=== PATIENT | female | born 1985 | race American Indian/Alaskan Native ===

== ENCOUNTER 2019-10-09 06:45 | Inpatient (IN) | payer BC ==
[2019-10-09] MEDS ORDERED: MINERAL OIL 30 ML ORAL LIQD PO PRN (07:19)
[2019-10-09] MEDS ORDERED: ePHEDrine SULFATE 50 MG/1 ML INJ IV PRN (07:19)
[2019-10-09] MEDS ORDERED: TERBUTALINE 1 MG/1 ML INJ SUB-Q PRN (07:19)
[2019-10-09] MEDS ORDERED: TERBUTALINE 1 MG/1 ML INJ IVP PRN (07:19)
[2019-10-09] MEDS ORDERED: fentaNYL 100 MCG/2 ML INJ IV ONE (07:47)
[2019-10-09] MEDS ORDERED: OXYTOCIN DRIP 30 UNITS/500 ML BAG IV SCH (08:00)
[2019-10-09] MEDS ORDERED: LACTATED RINGERS 1,000 ML IV SCH ×2 (08:00→10:00)
[2019-10-09] MEDS ORDERED: LIDOCAINE (2%) 20 MG/1 ML VIAL 20 ML MDV INFILTRATI ONE (08:00)
[2019-10-09] MEDS ORDERED: AMPICILLIN/NS 2 GM/100 ML 2 GM/100 ML BAG IV ONE (08:00)
[2019-10-09] MEDS ORDERED: OXYTOCIN 20 UNIT/1000ML DRIP 20 UNITS/1,000 ML BAG IV SCH (08:00)
--- NOTE | 2019-10-09 08:00 | History and Physical Report ---
History of Present Illness Date of examination: 10/09/19 (pt presented in active labor) History of present illness: EDC Confirmation: 10/07/2019 Gestational Age: 7 4/7 weeks Past History : 2 Term Births: 1 Premature Births: 0 Living Children: 1 Para: 1 Mult. Births: 0 Prev : 0 Prev. attempt? 0 Aborta: 0 Elect. Ab: 0 Spont. Ab: 0 Ectopics: 0 # 1 Weeks Gestation: term Delivery type: Comments: preeclampsia0 Past Medical History Abnormal PAP: negative XIN Exposure: negative Infertility: negative Uterine Anomaly: negative Uterine Surgery (not C/S): negative Other Gynecologic Problems: negative Social Hx: denies etoh, drugs, tobacco use Infection History Hx of STD: none HIV Risk Eval: no Hepatitis B Risk Eval: low risk Personal hx. of genital herpes: no Partner hx. of genital herpes: no Rash, Viral, or Febrile illness since last LMP? no Varicella/Chicken Pox Status: Previous Disease TB Risk: no Genetic History ADVANCED MATERNAL AGE Congenital Heart Defect: Mom: no Dad: no Kayla Disease: Mom: no Dad: no Thalassemia Mom: no Dad: no Neural Tube Defect Mom: no Dad: no Down's Syndrome Mom: no Dad: no Darrius-Sachs Mom: no Dad: no Sickle Cell Disease/Trait Mom: no Dad: no Hemophilia Mom: no Dad: no Muscular Dystrophy Mom: no Dad: no Cystic Fibrosis Mom: no Dad: no [place] Chorea Mom: no Dad: no Mental Retardation Mom: no Dad: no Fragile X Mom: no Dad: no Other Genetic/Chromosomal Disorder Mom: no Dad: no Child w/other defect Mom: no Dad: no Enviromental Exposures Enviromental Exposures Reviewed Xray Exposure: no Medication, drug, or alcohol use since LMP: no Chemical/Other Exposure: no Exposure to Cat Liter: no Hx of Parvovirus (Fifth Disease): no Occupational Exposure to Children: none Active Medications (reviewed today): PNV () Current Allergies (reviewed today): * COMPAZINE (Critical) * DIFLUCAN (Critical) Past History - Obstetrical History Expected Date of Delivery: 10/07/19 Actual Gestation: 40 Week(s) 2 Day(s) : 2 Para: 1 Hx # Term Pregnancies: 1 (PP preE) Number of Pregnancies: 0 Spontaneous Abortions: 0 Induced : 0 Number of Living Children: 1 Medications and Allergies Allergies Allergy/AdvReac Type Severity Reaction Status Date / Time fluconazole [From Diflucan] Allergy Rash Verified 10/09/19 06:58 prochlorperazine Allergy Unknown Verified 10/09/19 08:29 [From Compazine] Home Medications Medication Instructions Recorded Confirmed Last Taken Type Aspirin [Aspirin BABY CHEW TAB] 1 tab PO DAILY 10/09/19 10/09/19 10/08/19 History Vit-Fe Fumar-FA [ 1 tab PO DAILY 10/09/19 10/09/19 10/08/19 History Vitamin] Active Meds: Active Medications Ephedrine Sulfate (Ephedrine Sulfate) 10 mg IV Q2M PRN PRN Reason: Hypotension Oxytocin/Sodium Chloride (Pitocin/Ns 20 Unit/1000ml Drip) 20 units in 1,000 mls @ 125 mls/hr IV DIRECT LACHO Lactated Ringer's (Lactated Ringers) 1,000 mls @ 125 mls/hr IV DIRECT LACHO Ampicillin Sodium (Ampicillin/Ns 2 Gm/100 Ml) 2 gm in 100 mls @ 100 mls/hr IV ONCE ONE; Protocol Stop: 10/09/19 08:59 Lidocaine (Xylocaine 2%) 20 ml INFILTRATI ONCE ONE Stop: 10/09/19 08:01 Mineral Oil (Mineral Oil) 30 ml PO QHS PRN PRN Reason: Constipation Terbutaline Sulfate (Brethine) 0.25 mg SUB-Q ONCE PRN PRN Reason: Hyperstimulation/Hypertonicity - Vital Signs Vital signs: Vital Signs Pulse Ox 83 L 10/09/19 06:48 Temp Pulse Resp BP Pulse Ox 99.2 F 101 H 18 151/86 97 10/09/19 06:49 10/09/19 07:21 10/09/19 06:49 10/09/19 06:49 10/09/19 07:21 - Physical Exam Breasts: Positive: deferred Cardiovascular: Regular rate, Normal S1, Normal S2 Abdomen: Positive: normal appearance, soft, normal bowel sounds. Negative: distention, tenderness Vulva: both: normal Vagina: Positive: normal moisture. Negative: discharge Cervix: Negative: lesion, discharge Uterus: Positive: normal size, normal contour Adnexa: both: normal Anus/Rectum: Positive: normal perianal skin, heme negative. Negative: rectal mass, hemorrhoids Extremities: Positive: normal Deep Tendon Reflex Grade: Normal +2 - Obstetrical FHR: category 1 Uterine Contraction Monitor Mode: External Cervical Dilatation: 5 (per Triage nurse) Cervical Effacement Percentage: 70 (BBOW) station: -2 Uterine Contraction Pattern: Regular Uterine Tone Measurement Phase: Resting Uterine Contraction Intensity: Moderate Results Result Diagrams: 10/09/19 07:58 10/09/19 07:58 All other labs normal. GBS POSITIVE HBsAg Screen Negative Negative *1 RPR Non Reactive Non Reactive *2 Rubella Antibodies, IgG 16.60 index Immune >0.99 *3 Non-immune <0.90 Equivocal 0.90 - 0.99 Immune >0.99 ABO Grouping O *4 Rh Factor Positive *5 Please note: Prior records for this patient's ABO / Rh type are not available for additional verification. Antibody Screen Negative Negative *6 WBC 8.6 x10E3/uL 3.4-10.8 *7 RBC 4.39 x10E6/uL 3.77-5.28 *8 Hemoglobin 12.6 g/dL 11.1-15.9 *9 Hematocrit 39.3 % 34.0-46.6 *10 MCV 90 fL 79-97 *11 MCH 28.7 pg 26.6-33.0 *12 MCHC 32.1 g/dL 31.5-35.7 *13 RDW 13.2 % 12.3-15.4 *14 Platelets 222 x10E3/uL 150-450 *15 Neutrophils 65 % Not Estab. *16 Lymphs 28 % Not Estab. *17 Monocytes 6 % Not Estab. *18 Eos 1 % Not Estab. *19 Basos 0 % Not Estab. *20 ! Immature Cells <No Reported Value> *21 Neutrophils (Absolute) 5.5 x10E3/uL 1.4-7.0 *22 Lymphs (Absolute) 2.4 x10E3/uL 0.7-3.1 *23 Monocytes(Absolute) 0.6 x10E3/uL 0.1-0.9 *24 Eos (Absolute) 0.1 x10E3/uL 0.0-0.4 *25 Baso (Absolute) 0.0 x10E3/uL 0.0-0.2 *26 ! Immature Granulocytes 0 % Not Estab. *27 ! Immature Grans (Abs) 0.0 x10E3/uL 0.0-0.1 *28 ! NRBC <No Reported Value> *29 Hematology Comments: <No Reported Value> *30 Tests: (2) HB Solu + Rflx Frac ([id number]) Hemoglobin (Hgb) Solubility Negative Negative *31 Tests: (3) Gest. Diabetes 1-Hr Screen ([id number]) ! Gestational Diabetes Screen 102 mg/dL 65-139 *32 According to ADA, a glucose threshold of >139 mg/dL after 50-gram load identifies approximately 80% of women with gestational diabetes mellitus, while the sensitivity is further increased to approximately 90% by a threshold of >129 mg/dL. Tests: (4) HCV Antibody reflex to CORBY ([id number]) ! HCV Ab <0.1 s/co ratio 0.0-0.9 *33 Tests: (5) Interpretation: ([id number]) ! Interpretation: SPRCS *34 Negative Not infected with HCV, unless recent infection is suspected or other evidence exists to indicate HCV infection. Tests: (6) Urine Culture, Routine ([id number]) Urine Culture, Routine Final report *35 Tests: (7) Result ([id number]) ! Result 1 "Result Below..." *36 RESULT: Lactobacillus species Greater than 100,000 colony forming units per mL Susceptibility not normally performed on this organism. Assessment and Plan 33yo @ 40 weeks in active labor GBS+ Hx of PP PreEclampsia Orders in EMR. Anticipate delivery - Patient Problems (1) Active labor Onset Date: ~10/09/19 Current Visit: No Status: Acute Plan to address problem: anticipate delivery (2) Group B Streptococcus carrier state affecting Onset Date: ~10/09/19 Current Visit: Yes Status: Acute Plan to address problem: ampicillin per protocol (3) 40 weeks gestation of Onset Date: ~10/09/19 Current Visit: Yes Status: Acute (4) BMI 45.0-49.9, adult Onset Date: ~10/09/19 Current Visit: Yes Status: Acute
[2019-10-09 08:44] LABS: Hematocrit 39.4 % (30.3-42.9); Hemoglobin 12.9 gm/dl (10.1-14.3); Mean Corpuscular HGB Conc 33 % (30-34); Mean Corpuscular Volume 91 fl (79-97); Platelet Count 180 K/mm3 (140-440); Red Blood Count 4.33 M/mm3 (3.65-5.03); Red Cell Distribution Width 14.8 % (13.2-15.2)
[2019-10-09 08:45] LABS: Alanine Aminotransferase 19 units/L (7-56); Uric Acid 5.9 mg/dL (3.5-7.6)
[2019-10-09] MEDS ORDERED: miSOPROStol 200 MCG TAB ONE (08:50)
--- NOTE | 2019-10-09 09:24 | Procedure Note ---
OB Delivery Note - Delivery Date of Delivery: 10/09/19 Carton Stenciler: LAXMI ABREU Estimated blood loss: 300cc - Vaginal Delivery presentation: vertex Delivery position: OA Intrapartum events: precipitous labor- <3hr, other(please specify) (hx of PP PreE) Delivery induction: none Delivery monitor: external FHT, external uterine Route of delivery: Delivery placenta: spontaneous Delivery cord: 3 umbilical vessels Episiotomy: none Delivery laceration: 2nd degree Delivery repair: vicryl Anesthesia: local Delivery comments: Pt c/o need to defecate. SVE 10,100,+1 BBOW live born male over intact perineum Caul removed from baby's head. Placed skin to skin on mom's abdomen. Cord blood obtained Placenta delivered complete and intact, 3 vessel cord. Pit IVFs. Continued trickle of blood despite massage and uterine sweep. Cytotec 800mcg TN. Laceration vaginal repaired over lidocaine with 2-0 vicryl. Called to room by RN several mod clots removed from uterus. Pt w/o s/sx of anemia OOB to void EBL corrected to 600ml Elevated BPs noted Will do MGSO4 2gm/hr. PreE protocol - Infant A at 1 minute: 8 at 5 minutes: 9 Infant Gender: Female (wgt 7-4)
[2019-10-09] MEDS ORDERED: diphenhydrAMINE 25 MG CAP PO PRN (09:26)
[2019-10-09] MEDS ORDERED: MAGNESIUM HYDROXIDE (MOM) ORAL LIQD UDC PO PRN (09:26)
[2019-10-09] MEDS ORDERED: WITCH HAZEL/ GLYCERIN PAD TP PRN (09:26)
[2019-10-09] MEDS ORDERED: ONDANSETRON 4 MG/2 ML INJ IV PRN (09:26)
[2019-10-09] MEDS ORDERED: LANOLIN/ZINC/DIMETHICONE (LANSINOH) 7 GM TP PRN (09:26)
[2019-10-09] MEDS ORDERED: HYDROcodone/ACETAMINOPHEN 5-325 MG TAB PO PRN (09:26)
[2019-10-09] MEDS ORDERED: PROMETHAZINE 25 MG TAB PO PRN (09:26)
[2019-10-09] MEDS ORDERED: ACETAMINOPHEN 325 MG TAB PO PRN (09:26)
[2019-10-09] MEDS ORDERED: miSOPROStol 200 MCG TAB PR ONE (10:00)
[2019-10-09] MEDS: PRENATAL VIT27-FE FUMARATE-FOLIC ACID VIT TAB PO SCH (10:36)
[2019-10-09] MEDS: IBUPROFEN 800 MG TAB PO SCH ×2 (10:36→17:11)
[2019-10-09] MEDS: MAGNESIUM SULFATE 40GM/1000ML 40 GM/1,000 ML BAG IV SCH (11:11)
[2019-10-09 12:45] LABS: Bilirubin,Urine NEG (Negative); Blood,Urine SM (Negative); Color,Urine Straw (Yellow); Mucus,Urine FEW /HPF; Protein,Urine <15 mg/dL mg/dL (Negative); Urobilinogen,Urine < 2.0 mg/dL (<2.0); WBC,Urine < 1.0 /HPF (0.0-6.0)
[2019-10-09 20:48] LABS: Hemoglobin 11.5 gm/dl (10.1-14.3)
[2019-10-10] MEDS: IBUPROFEN 800 MG TAB PO SCH ×3 (01:26→21:40)
[2019-10-10] MEDS ORDERED: DIPHtheria,PERTUSSIS(ACELL),TETANUS VACCINE/PF 0.5 ML VIAL IM ONE ×2 (06:00→21:30)
[2019-10-10] MEDS ORDERED: MEASLES, MUMPS & RUBELLA 12,500 UNIT/0.5 ML VACCINE SUB-Q ONE (06:00)
[2019-10-10] MEDS: MAGNESIUM SULFATE 40GM/1000ML 40 GM/1,000 ML BAG IV SCH (07:05)
--- NOTE | 2019-10-10 09:17 | Progress Note ---
Assessment and Plan Dr Reyes notified of pt status and POC - Patient Problems (1) Normal spontaneous vaginal delivery Onset Date: ~10/09/19 Current Visit: Yes Status: Acute Plan to address problem: FF below umb Lochia small Perineum slight swelling intact Will continue with routine PP pathway Advance as tolerated. Transfer to M/B @ 1100 after MGSO4 is stopped (2) Pre-eclampsia, Onset Date: ~10/09/19 Current Visit: Yes Status: Acute Plan to address problem: Overall BP 130/70 Has an occasional reading of 150/70 and there are outliers of 130/90 Will start Labetalol 200mg po BID, pt reports she was on BP medication after her last delivery. I&O 3750 No c/o BELL, blurred, chest pain. MGSO4 off @ 1000. OOB for AM care. Transfer order placed Subjective - Subjective Date of service: 10/10/19 (Pt in good spirits; no c/o voiced) Principal diagnosis: Day # 1 s/p ; PP PreE Interval history: EDC Confirmation: 10/07/2019 Gestational Age: 7 4/7 weeks Past History : 2 Term Births: 1 Premature Births: 0 Living Children: 1 Para: 1 Mult. Births: 0 Prev : 0 Prev. attempt? 0 Aborta: 0 Elect. Ab: 0 Spont. Ab: 0 Ectopics: 0 # 1 Weeks Gestation: term Delivery type: Comments: preeclampsia0 Past Medical History Abnormal PAP: negative XIN Exposure: negative Infertility: negative Uterine Anomaly: negative Uterine Surgery (not C/S): negative Other Gynecologic Problems: negative Social Hx: denies etoh, drugs, tobacco use Infection History Hx of STD: none HIV Risk Eval: no Hepatitis B Risk Eval: low risk Personal hx. of genital herpes: no Partner hx. of genital herpes: no Rash, Viral, or Febrile illness since last LMP? no Varicella/Chicken Pox Status: Previous Disease TB Risk: no Genetic History ADVANCED MATERNAL AGE Congenital Heart Defect: Mom: no Dad: no Kayla Disease: Mom: no Dad: no Thalassemia Mom: no Dad: no Neural Tube Defect Mom: no Dad: no Down's Syndrome Mom: no Dad: no Darrius-Sachs Mom: no Dad: no Sickle Cell Disease/Trait Mom: no Dad: no Hemophilia Mom: no Dad: no Muscular Dystrophy Mom: no Dad: no Cystic Fibrosis Mom: no Dad: no [place] Chorea Mom: no Dad: no Mental Retardation Mom: no Dad: no Fragile X Mom: no Dad: no Other Genetic/Chromosomal Disorder Mom: no Dad: no Child w/other defect Mom: no Dad: no Enviromental Exposures Enviromental Exposures Reviewed Xray Exposure: no Medication, drug, or alcohol use since LMP: no Chemical/Other Exposure: no Exposure to Cat Liter: no Hx of Parvovirus (Fifth Disease): no Occupational Exposure to Children: none Active Medications (reviewed today): PNV () Current Allergies (reviewed today): * COMPAZINE (Critical) * DIFLUCAN (Critical) Patient reports: voiding normally, pain well controlled : doing well Objective - Vital Signs Latest vital signs: Vital Signs Temp Pulse Resp BP BP Pulse Ox 10/10/19 09:11 91 H 99 10/10/19 09:06 99 H 99 10/10/19 09:05 99 H 94 10/10/19 09:01 89 98 10/10/19 08:56 93 H 96 10/10/19 08:51 83 97 10/10/19 08:46 87 97 10/10/19 08:41 85 97 10/10/19 08:36 83 97 10/10/19 08:31 86 98 10/10/19 08:26 92 H 97 10/10/19 08:21 97 H 98 10/10/19 08:16 93 H 98 10/10/19 08:11 93 H 98 10/10/19 08:07 97.1 F L 10/10/19 08:06 94 H 98 10/10/19 08:01 91 H 98 10/10/19 07:56 94 H 98 10/10/19 07:51 87 99 10/10/19 07:48 91 H 134/75 10/10/19 07:46 91 H 98 10/10/19 07:41 94 H 98 10/10/19 07:36 93 H 98 10/10/19 07:33 102 H 94 10/10/19 07:31 95 H 98 10/10/19 07:26 92 H 98 10/10/19 07:21 90 98 10/10/19 07:16 91 H 98 10/10/19 07:11 85 97 05/24/20 07:06 89 98 05/24/20 07:01 92 H 96 05/24/20 06:56 93 H 99 05/24/20 06:51 88 99 05/24/20 06:48 96 H 124/74 05/24/20 06:46 93 H 98 05/24/20 06:41 96 H 99 052420 06:36 92 H 100 05/24/20 06:31 97 H 100 052420 06:26 98 H 98 052420 06:21 108 H 99 052420 06:16 96 H 99 052420 06:11 97 H 99 052420 06:06 96 H 99 052420 06:01 97 H 100 052420 05:56 99 H 98 052420 05:51 99 H 99 052420 05:48 51 L 141/75 052420 05:46 97 05/24/20 05:25 96 H 98 05/24/20 05:20 95 H 98 052420 05:15 94 H 97 052420 05:10 92 H 98 0524/20 05:05 95 H 98 05/24/20 05:00 97 H 97 0524/20 04:55 94 H 98 05/24/20 04:50 103 H 99 05/24/20 04:48 96 H 131/73 05/24/20 04:45 95 H 98 05/24/20 04:40 94 H 98 05/24/20 04:35 98 H 99 05/24/20 04:30 94 H 98 05/24/20 04:25 97 H 99 05/24/20 04:20 97 H 99 05/24/20 04:15 97 H 100 05/24/20 04:10 96 H 100 05/24/20 04:05 95 H 99 05/24/20 04:00 99 H 99 05/24/20 03:55 98 H 100 05/24/20 03:50 98 H 100 05/24/20 03:48 100 H 139/92 05/24/20 03:45 98 H 100 05/24/20 03:40 99 H 97 05/24/20 03:35 92 H 99 05/24/20 03:30 87 97 05/24/20 03:26 85 94 05/24/20 03:25 91 H 98 05/24/20 03:20 90 99 05/24/20 03:15 88 99 05/24/20 03:10 87 98 05/24/20 03:05 94 H 98 05/24/20 03:00 95 H 98 05/24/20 02:55 91 H 98 05/24/20 02:50 91 H 97 05/24/20 02:48 96 H 132/79 05/24/20 02:45 90 97 05/24/20 02:40 91 H 98 05/24/20 02:35 93 H 98 05/24/20 02:30 90 98 05/24/20 02:25 93 H 99 05/24/20 02:20 95 H 95 05/24/20 02:15 96 H 96 05/24/20 02:12 89 94 05/24/20 02:10 93 H 97 05/24/20 02:05 93 H 97 05/24/20 02:00 92 H 96 05/24/20 01:55 91 H 97 05/24/20 01:50 93 H 97 05/24/20 01:48 96 H 138/81 05/24/20 01:45 93 H 98 05/24/20 01:40 95 H 98 05/24/20 01:35 95 H 97 05/24/20 01:30 95 H 98 05/24/20 01:25 92 H 97 05/24/20 01:20 101 H 99 05/24/20 01:15 95 H 97 05/24/20 01:10 93 H 98 05/24/20 01:05 94 H 98 05/24/20 01:00 99 H 98 05/24/20 00:55 91 H 98 05/24/20 00:50 91 H 98 05/24/20 00:48 89 136/73 05/24/20 00:45 94 H 98 05/24/20 00:40 101 H 98 05/24/20 00:35 101 H 98 05/24/20 00:30 101 H 98 05/24/20 00:25 99 H 98 05/24/20 00:20 99 H 98 05/24/20 00:15 106 H 99 05/24/20 00:10 98 H 98 05/24/20 00:05 104 H 97 05/24/20 00:00 103 H 98 05/23/20 23:55 102 H 98 05/23/20 23:50 101 H 99 05/23/20 23:48 96 H 135/72 05/23/20 23:45 102 H 98 05/23/20 23:40 100 H 98 05/23/20 23:35 104 H 98 05/23/20 23:30 106 H 99 05/23/20 23:25 98 H 99 05/23/20 23:20 101 H 99 05/23/20 23:15 97 H 98 05/23/20 23:10 101 H 99 05/23/20 23:09 95 H 126/71 05/23/20 23:05 93 H 97 05/23/20 23:00 93 H 98 05/23/20 22:55 95 H 97 05/23/20 22:50 100 H 97 05/23/20 22:45 95 H 97 05/23/20 22:40 93 H 98 05/23/20 22:35 98 H 99 05/23/20 22:30 97 H 100 05/23/20 22:25 94 H 97 05/23/20 22:20 94 H 96 05/23/20 22:15 95 H 97 05/23/20 22:10 105 H 99 05/23/20 22:05 97 H 98 05/23/20 22:00 99 H 99 05/23/20 21:55 100 H 99 05/23/20 21:50 99 H 98 05/23/20 21:29 102 H 99 05/23/20 21:24 109 H 97 05/23/20 21:19 107 H 100 05/23/20 21:14 102 H 98 05/23/20 21:09 105 H 98 05/23/20 21:04 99 H 97 05/23/20 20:59 98 H 97 05/23/20 20:54 99 H 97 05/23/20 20:49 105 H 158/75 99 05/23/20 20:48 101 H 93 05/23/20 20:44 104 H 99 05/23/20 20:39 101 H 98 05/23/20 20:34 99 H 99 05/23/20 20:29 101 H 98 05/23/20 20:24 99 H 99 05/23/20 20:21 97.4 F L 103 H 20 138/72 100 05/23/20 20:19 103 H 98 05/23/20 20:14 98 H 97 05/23/20 20:09 98 H 99 05/23/20 20:04 106 H 98 05/23/20 19:59 103 H 98 05/23/20 19:54 102 H 98 05/23/20 19:49 100 H 99 05/23/20 19:48 100 H 138/72 05/23/20 19:44 102 H 99 05/23/20 19:39 102 H 99 05/23/20 19:34 101 H 98 05/23/20 19:29 100 H 98 05/23/20 19:24 100 H 98 05/23/20 19:19 100 H 99 05/23/20 19:14 97 H 98 05/23/20 19:09 104 H 98 05/23/20 19:04 98 H 98 05/23/20 18:59 103 H 98 05/23/20 18:54 108 H 98 05/23/20 18:49 105 H 98 05/23/20 18:48 101 H 136/70 05/23/20 18:44 104 H 97 05/23/20 18:39 106 H 98 05/23/20 18:34 109 H 98 05/23/20 18:29 101 H 99 05/23/20 18:24 105 H 99 05/23/20 18:19 102 H 98 05/23/20 18:14 107 H 98 05/23/20 18:09 102 H 98 05/23/20 18:04 105 H 98 05/23/20 17:59 103 H 98 05/23/20 17:54 104 H 99 05/23/20 17:49 109 H 97 05/23/20 17:48 106 H 150/81 94 05/23/20 17:44 106 H 97 05/23/20 17:39 107 H 98 05/23/20 17:34 106 H 98 05/23/20 17:29 109 H 97 05/23/20 17:24 106 H 98 05/23/20 17:19 108 H 98 05/23/20 17:14 108 H 98 05/23/20 17:09 110 H 99 05/23/20 17:04 112 H 100 05/23/20 16:59 104 H 100 05/23/20 16:54 103 H 99 05/23/20 16:49 105 H 98 05/23/20 16:48 104 H 132/67 05/23/20 16:44 102 H 99 05/23/20 16:39 105 H 97 05/23/20 16:34 101 H 98 05/23/20 16:29 102 H 98 05/23/20 16:24 108 H 98 05/23/20 16:19 102 H 98 05/23/20 16:14 100 H 98 05/23/20 16:09 100 H 98 05/23/20 16:04 99 H 98 05/23/20 15:59 102 H 97 05/23/20 15:54 105 H 98 05/23/20 15:49 105 H 97 05/23/20 15:48 101 H 135/70 05/23/20 15:44 104 H 98 05/23/20 15:39 105 H 97 05/23/20 15:34 113 H 98 05/23/20 15:29 110 H 99 05/23/20 15:24 109 H 99 05/23/20 15:19 106 H 96 05/23/20 15:14 111 H 97 05/23/20 15:09 111 H 98 05/23/20 15:04 113 H 98 05/23/20 14:59 104 H 97 05/23/20 14:55 98.7 F 05/23/20 14:54 112 H 98 05/23/20 14:49 109 H 98 05/23/20 14:48 108 H 133/66 05/23/20 14:44 107 H 96 05/23/20 14:39 109 H 99 05/23/20 14:34 107 H 97 05/23/20 14:29 108 H 98 05/23/20 14:24 112 H 98 05/23/20 14:19 112 H 98 05/23/20 14:14 117 H 98 05/23/20 14:09 105 H 97 05/23/20 14:04 105 H 98 05/23/20 13:59 109 H 98 05/23/20 13:54 112 H 98 05/23/20 13:49 111 H 98 05/23/20 13:46 111 H 138/66 05/23/20 13:44 110 H 99 05/23/20 13:39 115 H 100 05/23/20 13:34 121 H 98 05/23/20 13:31 114 H 134/67 05/23/20 13:29 115 H 97 05/23/20 13:24 115 H 98 05/23/20 13:19 111 H 98 05/23/20 13:16 112 H 134/72 05/23/20 13:14 112 H 98 05/23/20 13:09 111 H 98 05/23/20 13:04 111 H 98 05/23/20 13:01 112 H 128/69 05/23/20 12:59 114 H 97 05/23/20 12:54 111 H 98 05/23/20 12:49 113 H 97 05/23/20 12:46 113 H 142/63 05/23/20 12:44 113 H 97 05/23/20 12:39 117 H 98 05/23/20 12:34 124 H 97 05/23/20 12:31 112 H 133/59 05/23/20 12:29 115 H 95 05//20 12:24 116 H 97 05//20 12:19 111 H 97 05//20 12:16 110 H 148/69 05/23/20 12:14 114 H 97 05/23/20 12:09 115 H 97 05/23/20 12:04 116 H 96 05/23/20 12:01 110 H 136/65 05//20 11:59 110 H 98 05/23/20 11:54 110 H 98 05/23/20 11:49 109 H 98 05/23/20 11:46 104 H 140/70 05/23/20 11:44 109 H 98 05/23/20 11:39 111 H 99 05/23/20 11:34 109 H 98 05/23/20 11:31 108 H 136/71 05/23/20 11:29 106 H 99 05/23/20 11:24 107 H 99 05/23/20 11:19 113 H 98 05/23/20 11:17 109 H 31 H 150/78 98 05/23/20 11:16 109 H 150/78 05/23/20 11:14 111 H 98 05/23/20 11:09 108 H 98 05/23/20 11:04 102 H 147/77 98 05/23/20 10:57 103 H 99 05/23/20 10:52 106 H 98 10/09/19 10:47 104 H 99 10/09/19 10:46 104 H 134/72 10/09/19 10:42 109 H 99 10/09/19 10:37 106 H 99 10/09/19 10:32 104 H 98 10/09/19 10:31 111 H 147/78 10/09/19 10:27 109 H 97 10/09/19 10:22 101 H 99 10/09/19 10:17 106 H 98 10/09/19 10:16 105 H 141/69 10/09/19 10:12 107 H 98 10/09/19 10:07 107 H 98 10/09/19 10:02 72 83 L 10/09/19 10:01 79 L 10/09/19 09:47 100 H 98 10/09/19 09:46 103 H 147/82 10/09/19 09:42 100 H 98 10/09/19 09:37 99 H 98 10/09/19 09:32 102 H 99 10/09/19 09:31 99 H 151/84 10/09/19 09:27 104 H 98 10/09/19 09:22 103 H 97 10/09/19 09:17 109 H 98 10/09/19 09:16 101 H 154/73 10/09/19 09:13 18 Intake and Output 10/09/19 10/10/19 10/10/19 22:59 06:59 14:59 Intake Total 995 Output Total 1100 1500 250 Balance -1100 -1500 745 Intake: IV 995 MAGNESIUM SULFATE 40GM/ 995 1000ML 40 gm In 1,000 ml @ 2 GM/HR 50 mls/hr IV DIRECT [facility] Rx#:[id number] Output: Urine 1100 1500 250 Indwelling Catheter 1100 1500 250 Other: Total, Output Amount 400 600 250 # Bowel Movements 1 1 - Exam Breasts: Present: normal Cardiovascular: Present: Regular rate Lungs: Present: Clear to auscultation, Normal air movement Abdomen: Present: normal appearance, soft, normal bowel sounds Uterus: Present: normal Extremities: Present: normal Incision: Present: normal, dry, intact - Labs Labs: Abnormal lab results 10/09/19 10/09/19 10/10/19 Range/Units 15:39 20:40 04:03 Magnesium 3.10 H 3.80 H 4.10 H (1.7-2.3) mg/dL
[2019-10-10] MEDS: PRENATAL VIT27-FE FUMARATE-FOLIC ACID VIT TAB PO SCH (09:54)
[2019-10-10] MEDS ORDERED: BENZOCAINE/MENTHOL 20/0.5% TOP SPRAY 56 GM TP PRN (15:21)
[2019-10-11] MEDS: IBUPROFEN 800 MG TAB PO SCH ×2 (05:52→09:46)
--- NOTE | 2019-10-11 08:02 | Discharge Summary ---
Providers - Providers Date of Admission: 10/09/19 07:40 Date of discharge: 10/11/19 Attending physician: HECTOR ANDREA Primary care physician: HETCOR ANDREA Hospitalization Reason for admission: active labor Delivery: Episiotomy: none Laceration: vaginal side wall Other procedures: none complications: other (Elevated blood pressure) Discharge diagnosis: IUP at term delivered [place] baby: female Hospital course: See dictated H&P. Patient was admitted underwent a normal spontaneous vaginal delivery. Her course was benign. She was afebrile throughout her stay. Her day 1 hematocrit was 35%. Patient is bottle and breast- feeding. Patient desires tubal ligation. Condition at discharge: Good Disposition: DC-01 TO HOME OR SELFCARE - Discharge Diagnoses (1) Normal spontaneous vaginal delivery Status: Acute (2) Pre-eclampsia, Status: Acute Plan - Discharge Medications Prescriptions: labetaloL [Labetalol 200mg TAB] 200 mg PO BID #60 tablet Ibuprofen [Motrin 800 MG tab] 800 mg PO TID PRN #30 tablet PRN Reason: Pain - Provider Discharge Summary Activity: routine, no sex for 6 weeks, no heavy lifting 4 weeks, no strenuous exercise Diet: routine Instructions: routine Additional instructions: [] Smoking cessation referral if applicable(refer to patient education folder for contact #) [] Refer to [facility] Booklet Call your doctor immediately for: * Fever > 100.5 * Heavy vaginal bleeding ( >1 pad per hour) * Severe persistent headache * Shortness of breath * Reddened, hot, painful area to leg or breast * Drainage or odor from incision. *Patient to keep in 1 week visit schedule. - Follow up plan Follow up: HECTOR ANDREA MD [Primary Care Provider] - 7 Days
[2019-10-11] MEDS: PRENATAL VIT27-FE FUMARATE-FOLIC ACID VIT TAB PO SCH (09:38)
[2019-10-11 12:41] VITALS: BP 128/83
== END 2019-10-11 13:30 | disposition home or self-care (01) | DRG 806 ==
LOC: TRG 06:45 → APU 06:46 → TRG 07:40 → LD 07:40 → OB 10-10 11:33
PROVIDERS: ADMIT Obstetrics & Gynecology; ATTEND Obstetrics & Gynecology
PROC: 10E0XZZ Delivery of Products of Conception, External Approach (ICD-10-PCS; principal; 2019-10-09)
PROC: 0UQGXZZ Repair Vagina, External Approach (ICD-10-PCS; 2019-10-09)
PROC: 3E0234Z Introduction of Serum, Toxoid and Vaccine into Muscle, Percutaneous Approach (ICD-10-PCS; 2019-10-10)
PROC: 3E0134Z Introduction of Serum, Toxoid and Vaccine into Subcutaneous Tissue, Percutaneous Approach (ICD-10-PCS; 2019-10-10)
DX: O62.3 Precipitate labor (principal); O71.4 Obstetric high vaginal laceration alone; Z37.0 Single live birth; O14.95 Unspecified pre-eclampsia, complicating the puerperium; O99.824 Streptococcus B carrier state complicating childbirth; Z3A.40 40 weeks gestation of pregnancy; Z79.82 Long term (current) use of aspirin; Z79.899 Other long term (current) drug therapy; Z23 Encounter for immunization
CPT/HCPCS: 36415; 81001; 82565; 83615; 83735; 84450; 84460; 84550; 85014; 85018; 85027; 86592; 86850; 86900; 86901; 88307; 90471; 90715; G0378; J0290; J2590; J3010; J3475; J7120

== ENCOUNTER 2019-12-03 06:23 | Day surgery (SDC) | payer BC ==
[2019-12-01 12:53] LABS: Hematocrit 38.4 % (30.3-42.9); Hemoglobin 12.2 gm/dl (10.1-14.3); Mean Corpuscular HGB Conc 32 % (30-34); Mean Corpuscular Volume 90 fl (79-97); Platelet Count 208 K/mm3 (140-440); Red Blood Count 4.29 M/mm3 (3.65-5.03); Red Cell Distribution Width 13.5 % (13.2-15.2)
--- NOTE | 2019-12-02 14:34 | History and Physical Report ---
History of Present Illness History of present illness: Patient has been reassessed/reevaluated. H&P has been reviewed. No interval changes. Patient desires sterilization. Discussed with various methods of contraceptives including abstinence, barrier and hormonal. Discussed oral, implantable, dermal, injectable,intravaginal and intrauterine methods. Patient declined temporary contraceptives. Discuss the permanency of sterilization. High risk of regret and 0.5 to 1% risk of failure. Questions answered Patient understands and desires to proceed. Vital Signs: Patient Profile: 34 Years Old Female Height: 68 inches Weight: 292 pounds BMI: 44.39 Temp: 97.6 degrees F BP sittin / 80 (left arm) Current Method of Contraception: None Past History : 2 Term Births: 2 Premature Births: 0 Living Children: 2 Para: 2 Mult. Births: 0 Prev : 0 Prev. attempt? 0 Aborta: 0 Elect. Ab: 0 Spont. 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 of genital herpes: no Partner hx. of genital herpes: no Hx of STD: none Current Allergies (reviewed today): * COMPAZINE (Critical) * DIFLUCAN (Critical) Past Medical History: Hypertension Past Surgical History: hysteroscopic polypectomy Family History Summary: General Comments - FH: negative Social History: denies etoh, drugs, tobacco use Risk Factors: Smoked Tobacco Use: Never smoker Smokeless Tobacco Use: Never Passive smoke exposure: no Drug use: no HIV high-risk behavior: no Caffeine use: 0 drinks per day Alcohol use: no Exercise: no Seatbelt use: 100 % Review of Systems General Denies fever, chills, sweats, anorexia, fatigue, weakness, malaise, weight loss and sleep disorder. Denies vaginal discharge, incontinence, dysuria, hematuria, urinary frequency, amenorrhea, menorrhagia, abnormal vaginal bleeding, pelvic pain, genital sores, decreased libido, painful periods, painful sex, urinary urgency, hot flashes, vaginal dryness, vaginal itching and vaginal odor. CV Denies chest pains, palpitations, syncope, dyspnea on exertion, orthopnea, PND and peripheral edema. Resp Denies cough, dyspnea at rest, excessive sputum, hemoptysis, wheezing and pleurisy. GI Denies nausea, vomiting, diarrhea, constipation, change in bowel habits, abdominal pain, melena, hematochezia, jaundice, gas/bloating, indigestion/heartburn, dysphagia and odynophagia. Breast Denies left breast lump, right breast lump, nipple discharge, bloody discharge from nipple, breast pain, abnormal mammogram and breast enlargement. Psych Denies depression, anxiety, irritability and mood swings. Past History Past Medical History: other (SEE HPI) Past Surgical History: Other (SEE HPI) Social history: full code, other (SEE HPI) Family history: other (SEE HPI) Medications and Allergies Allergies Allergy/AdvReac Type Severity Reaction Status Date / Time fluconazole [From Diflucan] Allergy Rash Verified 11/29/19 12:00 prochlorperazine Allergy Unknown Verified 11/29/19 12:00 [From Compazine] Home Medications Medication Instructions Recorded Confirmed Last Taken Type Vit-Fe Fumar-FA [ 1 tab PO DAILY 10/09/19 11/29/19 10/08/19 History Vitamin] labetaloL [Labetalol 200mg TAB] 200 mg PO BID #60 tablet 10/10/19 11/29/19 Unknown Rx Exam - Physical Exam Narrative exam: HEENT: normocephalic, no lesions or deformities Skin no abnormal lesions or rashes Chest: respiratory effort normal, clear to auscultation CV: regular, normal S1-S2, no murmur, no rub, no gallop Abdomen: Obese, normal bowel sounds, soft, nontender, no HSM Neuro: no gross anomalities Extremities: no clubbing, cyanosis, or edema 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 No evidence of cystocele or rectocele. Cervix: normal appearance, no lesions, no discharge Uterus: unable to palpate due to obesity Adnexae: unable to palpate due to obesity Rectovaginal: exam defered - Constitutional Vitals: Temp Pulse Resp BP Pulse Ox 98.4 F 96 H 20 132/82 95 12/01/19 11:45 12/01/19 11:45 12/01/19 11:45 12/01/19 11:45 12/01/19 11:45 Results - Labs CBC & Chem 7: 12/01/19 11:50 Assessment and Plan - Patient Problems (1) Encounter for sterilization Current Visit: No Status: Acute Plan to address problem: Patient desires sterilization.Discuss the permanency of sterilization. High risk of regret and 0.5 to 1% risk of failure. Discussed the different risk of abdominal versus vaginal approaches. Information given Discussed options of tubal blockage and salpingectomy and it's possible benefit of preventing ovarian cancer and increased risks of bleeding during the procedure. Discuss the risks of the surgery including infection, bleeding possibly heavy enough to require a blood transfusion, possilble damage to bowel, bladder or ureter. Patient understands and desires to proceed. with tubal ligation (2) Hypertension Current Visit: No Status: Acute Qualifiers: Hypertension type: essential hypertension Qualified Code(s): I10 - Essential (primary) hypertension (3) BMI 45.0-49.9, adult Onset Date: ~10/09/19 Current Visit: No Status: Acute
[~2019-12-03 06:23] MED LIST: CELECOXIB 200 MG CAP PO NR; GABAPENTIN 300 MG CAP PO NR; LACTATED RINGERS 1,000 ML IV SCH; MAGNESIUM OXIDE 400 MG TAB PO SCH; MIDAZOLAM 2 MG/2 ML INJ IV NR
[2019-12-03] MEDS ORDERED: BACTERIOSTATIC SODIUM CHLORIDE 0.9% 30 ML VIAL INFILTRATI ONE (06:33)
[2019-12-03] MEDS ORDERED: propofoL 200 MG/20 ML VIAL IV ONE ×2 (07:14→08:09)
[2019-12-03] MEDS ORDERED: LIDOCAINE MPF (2%) 20 MG/1 ML VIAL 5 ML ONE (07:14)
[2019-12-03] MEDS ORDERED: HYDROmorphone 1 MG/1 ML INJ ONE (07:14)
[2019-12-03] MEDS ORDERED: ROCURONIUM 50 MG/5 ML INJ IV ONE (07:15)
[2019-12-03] MEDS ORDERED: BUPIVACAINE/PF (0.5%) 5 MG/1 ML 30 ML VIAL INFILTRATI ONE ×2 (07:23→08:29)
--- NOTE | 2019-12-03 07:50 | Anesthesia Consultation ---
Anesthesia Consult and Med Hx Date of service: 12/03/19 - Airway Anesthetic Teeth Evaluation: Good ROM Head & Neck: Adequate Mental/Hyoid Distance: Adequate Mallampati Class: Class III Intubation Access Assessment: Possibly Difficult - Pulmonary Exam CTA: Yes - Cardiac Exam Cardiac Exam: RRR - Pre-Operative Health Status ASA Pre-Surgery Classification: ASA3 Proposed Anesthetic Plan: General - Pulmonary Hx Smoking: No Hx Respiratory Symptoms: No Hx Sleep Apnea: No (HIGH RISK) - Cardiovascular System Hx Hypertension: Yes Hx Heart Attack/AMI: No Hx Percutaneous Transluminal Coronary Angioplasty (PTCA): No - Central Nervous System CVA: No - Gastrointestinal Hx Gastroesophageal Reflux Disease: No - Endocrine Hx Renal Disease: No Hx Liver Disease: No Hx Insulin Dependent Diabetes: No Hx Non-Insulin Dependent Diabetes: No Hx Thyroid Disease: No - Other Systems Hx Obesity: Yes (BMI 44)
--- NOTE | 2019-12-03 07:50 | Anesthesia Day of Surgery ---
Anesthesia Day of Surgery - Day of Surgery Patient Examined: Yes Patient H&P Reviewed: Yes Patient is NPO: Yes Beta Blockers: Yes (labetalol)
[2019-12-03] MEDS ORDERED: HYDROmorphone 1 MG/1 ML INJ IV PRN (07:51)
[2019-12-03] MEDS ORDERED: SUGAMMADEX SODIUM 200 MG/2 ML VIAL IV ONE (08:28)
[2019-12-03] MEDS ORDERED: SODIUM CHLORIDE 0.9% IRR 1,000 ML BOTTLE IR ONE (08:29)
[2019-12-03] MEDS ORDERED: KETOROLAC 30 MG/1 ML INJ ONE (08:34)
[2019-12-03] MEDS ORDERED: ONDANSETRON 4 MG/2 ML INJ ONE (08:34)
--- NOTE | 2019-12-03 08:47 | Operative Report ---
Operative Report Operative Report: Date December 03, 2019 Preoperative diagnosis: Multiparity desiring permanent sterilization Post-operative diagnosis: Same Procedure name(s): Laparoscopic bilateral tubal ligation with Filshie clips Surgeon: Colt Baca MD Manifest Clerk: [] Anesthesia: General endotracheal EBL: Minimal Complications: None Findings: Normal uterus and tubes bilaterally Specimen(s): None Patient was brought in the operating room. General anesthesia was induced without difficulty. She was placed in dorsal lithotomy position. Prepped and draped in usual sterile manner. Her urinary bladder with was emptied with a red rubber catheter. Speculum was placed in the vagina. A [employer] uterine m man ipulator was placed. Attention was then switched to the patient's abdomen. An infra-umbilical incision was made with a scalpel. This incision was spread with a hemostat. A 5 mm trocar was placed in this incision while lifting high the abdominal wall. Intra-abdominal presence was verified directly with the laparoscope. The patient was then insufflated to approximately 3 L of CO2 gas. The patient's findings as noted above. An accessory puncture was made suprapubically. The 8 mm trocar was placed through this incision under direct visualization with no evidence of internal organ damage. Each of the fallopian tube were identified by its fimbriated end. A portion approximately 1-2 cm from each cornua was grasped with the Filshie clip applicator. Two Filshie clips were placed on each fallopian tube were placed without any difficulty bilaterally. At this time all instruments were removed. The patient was insufflated. The skin incisions were closed subcuticular with 4-0 Vicryl. Marcaine was given subcuticularly for postoperative pain relief. The patient tolerated procedure well. She was awakened in the operating room and accompanied to the recovery room in good condition.
--- NOTE | 2019-12-03 08:52 | Short Stay Summary ---
Short Stay Documentation Date of service: 12/03/19 - History H&P: dictated Past Medical History: other (SEE HPI) Past Surgical History: Other (SEE HPI) Social history: full code, other (SEE HPI) - Allergies and Medications Current Medications: Allergies fluconazole [From Diflucan] Allergy (Verified 11/29/19 12:00) Rash prochlorperazine [From Compazine] Allergy (Verified 11/29/19 12:00) Unknown Home Medications Medication Instructions Recorded Confirmed Last Taken Type Vit-Fe Fumar-FA [ 1 tab PO DAILY 10/09/19 12/03/19 12/02/19 H istory Vitamin] labetaloL [Labetalol 200mg TAB] 200 mg PO BID #60 tablet 10/10/19 11/29/19 Unknown Rx Active Medications Celecoxib (Celebrex) 200 mg PO PREOP NR Stop: 12/03/19 23:59 Last Admin: 12/03/19 06:50 Dose: 200 mg Documented by: Gabapentin (Gabapentin) 600 mg PO PREOP NR Stop: 12/03/19 23:59 Last Admin: 12/03/19 06:50 Dose: 600 mg Documented by: Hydromorphone HCl (Dilaudid) 0.5 mg IV Q10MIN PRN PRN Reason: Pain , Severe (7-10) Stop: 12/03/19 22:00 Lactated Ringer's (Lactated Ringers) 1,000 mls @ 100 mls/hr IV DIRECT LACHO Stop: 12/03/19 23:59 Last Admin: 12/03/19 07:00 Dose: 100 mls/hr Documented by: Magnesium Oxide (Mag-Ox) 400 mg PO PREOP LACHO Last Admin: 12/03/19 06:50 Dose: 400 mg Documented by: Midazolam HCl (Versed) 2 mg IV PREOP NR Stop: 12/03/19 23:59 Last Admin: 12/03/19 07:12 Dose: 2 mg Documented by: - Brief post op/procedure progress note Date of procedure: 12/03/19 (See dictated operative note) - Hospital course Hospital course: Patient was admitted underwent the above him procedure without any complications. Patient will be discharged with follow-up in office in 1-2 weeks for postop check. - Disposition Disposition: DC-01 TO HOME OR SELFCARE - Discharge Diagnoses (1) Encounter for sterilization Status: Acute (2) Hypertension Status: Acute Qualifiers: Hypertension type: essential hypertension Qualified Code(s): I10 - Essential (primary) hypertension (3) BMI 45.0-49.9, adult Status: Acute Short Stay Discharge Plan Activity: advance as tolerated Diet: regular Wound: open to air Additional Instructions: Patient office for fever, chills, nausea, vomiting or pain uncontrolled by pain relief. Patient to keep scheduled postoperative visit. Follow up with: PRIMARY CAREMD [Primary Care Provider] - 7 Days
[2019-12-03] MEDS ORDERED: oxyCODONE /ACETAMINOPHEN 5-325MG TAB PO PRN (09:58)
[2019-12-03 11:01] VITALS: BP 150/78
--- NOTE | 2019-12-03 13:02 | Post Anesthesia Evaluation ---
- Post Anesthesia Evaluation Patient Participated: Yes Airway Patent: Yes Stable Respiratory Function: Yes Nausea/Vomiting: No Temp > 96.8F: Yes Pain Manageable: Yes Adequeate Hydration: Yes Anesthesia Complications: No
== END 2019-12-03 11:25 | disposition home or self-care (01) ==
LOC: OR 06:23
PROVIDERS: ATTEND Obstetrics & Gynecology
DX: Z30.2 Encounter for sterilization (principal); I10 Essential (primary) hypertension; E66.9 Obesity, unspecified; Z79.899 Other long term (current) drug therapy; Z98.890 Other specified postprocedural states; Z68.42 Body mass index [BMI] 45.0-49.9, adult; Z88.8 Allergy status to other drugs, medicaments and biological substances
CPT/HCPCS: 36415; 58671; 84703; 85027; J1170; J1885; J2250; J2405; J2704; J7120; U0003